=== PATIENT | male | born 1945 | race Hispanic/Latino ===

== ENCOUNTER 2018-06-26 06:23 | Day surgery (SDC) | payer MEDICARE ==
[2018-06-19 10:54] VITALS: BMI 24.5
[2018-06-26 07:15] VITALS: RESP 20; O2SAT 99
[2018-06-26] MEDS ORDERED: Iodixanol 320 MG/ML 200 ML BOTTLE IV ONE (08:53)
[2018-06-26] MEDS ORDERED: Iohexol 350mgl/ml 50 ML ONE (08:53)
[2018-06-26] MEDS ORDERED: Iodixanol 320 MG/ML 100 ML BOTTLE IV ONE (08:53)
[2018-06-26] MEDS ORDERED: Lidocaine PF 2% (5 ml) Inj (For Cardiac Arrhy) ONE (08:53)
[2018-06-26] MEDS ORDERED: Midazolam 2 MG/2 ML VIAL ONE ×2 (09:06→09:22)
[2018-06-26] MEDS ORDERED: Sodium Chloride 0.9% 1,000 ML IV SCH (09:45)
[2018-06-26 10:45] VITALS: TEMP 98
[2018-06-26 11:53] VITALS: BP 126/60; PULSE 59
--- NOTE | 2018-06-26 13:56 | CARDCATH ---
PROCEDURE DATE: 06/26/2018 PROCEDURES: 1. Selective left and right coronary angiography. 2. Left ventriculography. 3. Right femoral arteriography. 4. Angio-Seal deployment. HISTORY: This is a 72-year-old male with known coronary disease, who has had recent worsening exertional dyspnea. Due to the symptoms, a cardiac catheterization was advised. INDICATION: Exertional dyspnea, known coronary disease. FINDINGS: HEMODYNAMICS: The aortic pressure was 130/70. Left ventricular pressure was 113/16. CORONARY ANATOMY: 1. The left main stem was long and normal. 2. The left anterior descending artery had moderate calcification proximally and evidence of a diffuse 40% to 50% tapering present. The diagonal branches had evidence of minimal disease. 3. The left circumflex artery was of moderate size and dominant. The obtuse marginal branches were fairly small in caliber. This proximal circumflex had mild tapering, but no high-grade stenosis. 4. The right coronary artery was small and nondominant. LEFT VENTRICULOGRAPHY: A hand injection was performed on the left ventricle revealing a relatively normal wall motion with an ejection fraction of 55%. There was no aortic valve gradient on catheter pullback. Mitral regurgitation was not assessed. RIGHT FEMORAL ARTERIOGRAPHY: The right femoral arteriogram was performed in the area of projection. This revealed no evidence of significant disease and appropriate level of arterial puncture. The puncture site was then closed with deployment of an Angio-Seal device. CONCLUSION: 1. Mhou-we-bivzuzca diffuse proximal left anterior descending disease. 2. Preserved left ventricular systolic function. RECOMMENDATIONS: Given the above findings, continued risk factor control appeared most appropriate. Mayank Parrish MD (Delete this signature block when dictator is a preceptor.) cc: MD Yemi (Delete if not dictated.)
== END 2018-06-26 13:45 | disposition home or self-care (01) ==
LOC: CATH 06:23
PROVIDERS: ATTEND Internal Medicine Cardiovascular Disease
DX: I25.10 Atherosclerotic heart disease of native coronary artery without angina pectoris (principal); I10 Essential (primary) hypertension; R06.09 Other forms of dyspnea
CPT/HCPCS: 36415; 86850; 86900; 93458; 99152; 99153; C1760; C1769; C2629; J1644; J2250; J3010; J7030; Q9966